=== PATIENT | female | born 1985 | race Caucasian/White ===

== ENCOUNTER 2021-03-08 14:13 | Emergency (ER) | payer OTHER, MEDICAID ==
[~2021-03-08] VITALS: Ht 154.9 cm; Wt 55.8 kg
[2021-03-08] MEDS ORDERED: DORYX MPC120 MG PO (14:28)
[2021-03-08 15:03] VITALS: BP 117/66
== END 2021-03-08 15:04 | disposition home or self-care (01) ==
LOC: M.ERS 14:13
DX: S09.90XA Unspecified injury of head, initial encounter (principal); R42 Dizziness and giddiness; Z79.899 Other long term (current) drug therapy; Z88.0 Allergy status to penicillin; W50.0XXA Accidental hit or strike by another person, initial encounter; Y93.89 Activity, other specified; Y92.89 Other specified places as the place of occurrence of the external cause; Y99.8 Other external cause status